=== PATIENT | female | born 1940 | race Caucasian/White ===

== ENCOUNTER → 2016-05-24 | Outpatient (CLI) | payer MEDICARE, BC ==
[~2016-05-24] MED LIST: ACTEMRA80 MG/4 ML; AGGRENOX PO; ALLOPURINOL300 MG PO; ALPRAZOLAM PO; ASPIRIN PO; ATENOLOL PO; AZATHIOPRINE50 M2 PO; BACTRIM 400-801 TA1 PO; BENICAR20 MG PO; CALCIUM + D 6001 TA1 PO; CALCIUM 500 + D1 TAB PO; CHEWABLE ASPIRI81 MG PO; EFFEXOR-XR75 MG PO; EMBREL; FISH OIL 1,001000 M1 PO; GLUCOTROL XL10 MG PO; HYDROCODON-ACE1 EAC1 PO; JANUVIA50 MG PO; LODINE PO; LOZOL PO; MACRODANTIN PO; METFORMIN PO; MIRALAX17 GM PO; PREDNISONE5 MG PO; REMERON PO; TENORMIN50 MG PO; VITAMIN B-121000 MCG PO; VITAMIN E400 UNI4 PO; XANAX1 MG PO; ZETIA PO; ZOCOR PO
--- NOTE | ~2016-05-24 | CT57 ---
[facility] A Service of [facility] & [facility] RADIOLOGY TEXT RESULTS PATIENT: DOMINGO PRITCHARD [facility] UN[facility] #: [id number] AGE: [address]: Nancy Nicholas APRN SEX: F ORDER DR: [id number] [facility]. [place], [place] [address] [id number] O MR#: [id number] #: [id number] NAME: DOMINGO PRITCHARD. : 1940 SEX: F STUDY DATE/TIME: 05/24/2016 16:17 UNIT: [facility] ROOM: STUDY DESCRIPTION: CT Chest Wo Cont Attending Physician: Nancy Nicholas A.P.R.N. Referring Physician: Nancy Nicholas A.P.R.N. Ordering Physician: Nancy Nicholas A.P.R.N. Primary Care Physician: Jez Lopez M.D. MEDICAL IMAGING REPORT This report is preliminary unless electronic signature is present EXAM CT chest without contrast HISTORY 75-year-old female with shortness of air, hemoptysis, cough x3 days COMPARISON CT chest 09/30/[address] exam was performed with one or more of the following radiation dose reduction techniques: Automatic exposure control, adjustment of mA and/or kV according to patient size, and iterative reconstruction. Axial images performed through the chest without contrast. Multiplanar reconstructed images reviewed at a workstation. No focal airspace disease or consolidation. No effusions. Trachea and bronchi unremarkable. There is a 5.5-mm nodule, noncalcified, in the right lower lobe but this does not appear significantly changed from the CT scan of 09/30/2009 and is compatible with benign disease. Few scattered parenchymal calcifications. Heart size within normal limits. Pulmonary arteries unremarkable on this unenhanced study. Minimal aortic atherosclerotic changes. There is calcified right hilar nodes compatible with old granulomatous disease. Visualized upper abdomen unremarkable. Osseous structures demonstrate mild diffuse degenerative changes thoracic spine. Thoracic inlet unremarkable. IMPRESSION 1. No acute cardiopulmonary abnormality identified. There is a small STS. 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 2. Stable 5.5 mm noncalcified nodule right lower lobe, stability since November 2009 compatible with benign disease. Findings were called to Nancy Nicholas following this dictation. Dictated by... Wendy Ratliff M.D. THIS IS AN ELECTRONICALLY VERIFIED REPORT Wendy Ratliff M.D. at 05/25/2016 7:28 AM GIGI/jeremy TD: 05/25/2016 02:11 JOB #: [id number] MEDICAL IMAGING REPORT Page 1 of 1 COPY
== END | disposition home or self-care (01) ==
LOC: CCAT 15:56
DX: R06.02 Shortness of breath (principal); R04.2 Hemoptysis; R05 Cough; J98.11 Atelectasis; R91.1 Solitary pulmonary nodule
CPT/HCPCS: 71250

== ENCOUNTER → 2016-09-02 | Outpatient (CLI) | payer MEDICARE, BC ==
--- NOTE | ~2016-09-02 | MY29 ---
[facility] A Service of [facility] & [facility] RADIOLOGY TEXT RESULTS PATIENT: DOMINGO PRITCHARD LOCATION: [facility] : 42 UNIT #: [id number] AGE: [address]: Jez Lopez MD SEX: F ORDER DR: [id number] [facility] [address] [place], [place] [address] [id number] O MR#: [id number] #: [id number] NAME: DOMINGO PRITCHARD. : 1940 SEX: F STUDY DATE/TIME: 09/02/2016 12:41 UNIT: [facility] ROOM: STUDY DESCRIPTION: MY KRISTIN SCREENING W/ CAD BILAT Attending Physician: Jez Lopez M.D. Referring Physician: Jez Lopez M.D. Ordering Physician: Jez Lopez M.D. Primary Care Physician: Jez Lopez M.D. MEDICAL IMAGING REPORT This report is preliminary unless electronic signature is present EXAM Digital screening mammogram, 09/02/2016, [facility]. HISTORY 75-year-old woman; no risk elevation. Annual screening. COMPARISON Comparison mammograms date to 12/09/2006, with most recent 08/05/2015. FINDINGS Digital imaging of each breast was completed, utilizing screening protocol. Review includes FDA-approved CAD device. Breast parenchyma is heterogeneously dense with a diffuse small nodular parenchymal pattern again noted. Subareolar duct prominence is noted in each breast. I see no suspicious mass. There are no interval occurring suspicious microcalcifications and no architectural deformity. IMPRESSION Stable benign mammogram. Annual screening recommended. Patients over the age of 40 are entered into a reminder system with target due date for the next mammogram. A result letter will also be sent to the patient. BIRADS: 2 Benign finding. Dictated by... Hilton Rao M.D. THIS IS AN ELECTRONICALLY VERIFIED REPORT Hilton Rao M.D. at 09/02/2016 4:06 PM [facility] A Service of [facility] & [facility] RADIOLOGY TEXT RESULTS PATIENT: DOMINGO PRITCHARD [id number] 44 UNIT #: [id number] AGE: [address]: Jez Lopez MD SEX: F ORDER DR: Ciara TD: 09/02/2016 15:57 JOB #: [id number] MEDICAL IMAGING REPORT Page 1 of 1 COPY
== END | disposition home or self-care (01) ==
LOC: CWCC 12:00
DX: Z12.31 Encounter for screening mammogram for malignant neoplasm of breast (principal)
CPT/HCPCS: G0202